=== PATIENT | male | born 1970 | race Caucasian/White ===

== ENCOUNTER 2017-08-10 11:50 | Day surgery (SDC) | payer MEDICARE, MEDICAID ==
[~2017-08-10 11:50] MED LIST: ACAR50TA PO; CLOTCRE TOP; COMPTAB16 PO; IBUP800 PO; INSU100V2 SQ; JANU100T PO; LANTUSP SQ; LISI-363 PO; METO50TA PO; OMEGCAP21 PO; VALT1TAB26 PO
[2017-08-10 12:11] VITALS: BP 161/86; PULSE 77; RESP 20; TEMP 98.3; O2SAT 96
[2017-08-10] MEDS ORDERED: ICOS1CAP PO (12:27)
[2017-08-10] MEDS ORDERED: VALT1TAB PO (12:27)
[2017-08-10] MEDS ORDERED: LANTUS2P SQ (12:27)
[2017-08-10] MEDS ORDERED: LISI-515 PO (12:27)
[2017-08-10] MEDS ORDERED: PIOG30TA4 PO (12:27)
[2017-08-10] MEDS ORDERED: SITA1TAB2 PO (12:27)
[2017-08-10] MEDS ORDERED: TRAD5TAB PO (12:27)
[2017-08-10] MEDS ORDERED: METO50TA11 PO (12:27)
[2017-08-10] MEDS ORDERED: NOVORP2 SQ (12:27)
[2017-08-10] MEDS ORDERED: OMEGCAP PO (12:27)
[2017-08-10] MEDS ORDERED: FENO145T2 PO (12:27)
[2017-08-10] MEDS ORDERED: IBUP800T23 PO ×2 (12:27)
[2017-08-10] MEDS ORDERED: CANA100T PO (12:27)
[2017-08-10] MEDS ORDERED: ASPI81CH37 CHEW (12:27)
[2017-08-10] MEDS ORDERED: EMTR1TAB2 PO (12:27)
[2017-08-10] MEDS ORDERED: MULT-210 (12:27)
[2017-08-10] MEDS ORDERED: ERTAPENEM 1,000 MG/NS 100 ML IV ONE ×2 (13:00)
--- NOTE | 2017-08-10 14:53 | RADRPT ---
EXAM DATE/TIME: 08/10/2017 12:44 [place] COMPARISON: PICC LINE INSERTION,POWER W/FL&US, September 01, 2015, 14:59. INDICATIONS : Patient with ulcer on foot.needs antibx therapy. MEDICAL HISTORY : 1. DM 2. HIV 3.HTN SURGICAL HISTORY : 1 previous picc lines ENCOUNTER: Initial ACUITY: 2 weeks PAIN SCORE: 0/10 FLUORO TIME: 0.2 minutes IMAGE SERIES: 1 ACCESS: Right basilic vein DEVICE(S): 1.) 4 [place] single lumen 45 cm Xcela Power PICC PROCEDURE : 1. Ultrasound guidance for venous catheterization. 2. Fluoroscopic guidance. 3. Ultrasound & fluoroscopic guided central venous Power PICC line placement. The risks, benefits and alternatives to the procedure were explained and verbal and written consent w as obtained. The site was prepped in sterile fashion. Full sterile technique was used, including ca p, mask, sterile gloves and gown and a large sterile sheet. Hand hygiene and 2% chlorhexidine prep w as utilized per protocol for cutaneous antisepsis with appropriate dry time for site. Sterile gel a nd sterile probe cover were utilized for ultrasound guidance. The skin and subcutaneous tissues wer e infiltrated with local anesthetic solution. Under direct ultrasound guidance, a suitable vein was accessed and a measuring guidewire was introduc ed and positioned in the central venous system. The ultrasound images depicting access guidance were saved and stored to PACS for permanent record. A Power Injectable PICC line was cut to prescribed length and introduced, positioned with tip at the cavoatrial junction level. The line was flushed and secured per protocol. CONCLUSION: 1. Uncomplicated central venous Power PICC line placement. 2. The PICC line can be used immediately. Nish Pena MD on August 10, 2017 at 14:50 Board Certified Radiologist. This report was verified electronically.
== END 2017-08-10 13:35 | disposition home or self-care (01) ==
LOC: HROP 11:50 → HRIP 11:54 → HROP 13:35
PROVIDERS: ATTEND Specialist
DX: E11.621 Type 2 diabetes mellitus with foot ulcer (principal); L97.529 Non-pressure chronic ulcer of other part of left foot with unspecified severity; I10 Essential (primary) hypertension; B20 Human immunodeficiency virus [HIV] disease
CPT/HCPCS: 36569; 76937; 77001; 96365; C1751; J1335; J1642